=== PATIENT | male | born 1960 | race Two or more races ===

== ENCOUNTER 2021-11-24 14:00 | Outpatient (AMB) | payer MEDICAID, SELFPAY ==
--- NOTE | 2021-12-23 13:57 | CWC.SOCIALAS ---
[facility] Social Work Assessment Intake Visit Date: 11/24/21 Conference Time: 02:00 (pm) Conference Visit Location: [facility] via phone call Visit Participants: Blas Portillo-patient, Joan Torrez-, Abhinav Portillo-Son, Harriett Lira-Daughter in-law, Mireya Toledo-JBOSS ARCHITECT, Dr. Dimas Rodrigues. Referral Source: Inital Visit Sales And Service Technician: Yes (For communication with Dr. Rodrigues) Name of Sales And Service Technician: Mireya Toledo LCSW List Name, Facility and location of PCP: Brisa Portillo, [facility] Preliminary Information History provided by: Patient and Family Diagnosis: Bone Cancer and History of Prostate Cancer Prognosis: Fair Goal of Care: Life Prolonging (Patient would like to feel better. Patient's son, Abhinav, reported his goal for patient would be for him to live longer so patient can see his grandchildren grow. ) Social Environment [facility] Employment status: Disabled (Patient applied for state disability ROMIE. 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 ) Support system: Good (Patient reported he has support from his who he has been to for 42 years, his 5 children (3 daughters and 2 sons) and his daughter in-law, and grandchildren. ) ADL's Getting dressed: Yes Personal Hygiene: Yes Feeding: Yes Ambulate: Yes Continence management: Yes Prepare meals: No ( cooks) Transportation: No (Son takes him to appointments) paste mixer: No ( completes residential roofer helper) Manage medications: No ( assist with medications) Manage finances: No ( manages finances) Patient has the following @ home: None (Patient does not use Home O2. Patient does not use, need, or have DME. ) Ambulation ability: Ambulates independently (Patient reported no falls. Patient reported no fear of falling. ) Mandaeism/Spirituality: Patient identified as Christianity and reported he does pray to bring him comfort. Cognitive/Emotional Status Mental status: Alert and Oriented Judgement: Good Emotional status: Normal Coping status: Coping w/some difficulty Learning needs: Language (Patient is Australian speaking and requires a answering service telephone operator. ) Depression screening score: 14 (Moderate Depression. Will continue to assess. Will further discuss with patient referral for counseling services if interested and symtpoms persist. ) Anxiety screening score: 9 (Mild Anxiety. Will continue to assess. Will further discuss with patient referral for counseling services if interested and symptoms persist. ) Additional comments: Patient?s mood and affect was within normal limits and thought process was congruent with thought content. Patient able to communicate effectively. Discussed limits of confidentiality. No signs of delusion or hallucinations during the call. Patient denied having hallucination or delusions. Patient denied past history of mental health diagnosis and services. Patient declined SI and HI past and current. Patient declined having a developmental or learning disorder. Patient only able to read and write in Australian. Patient declined substance abuse. Patient does not smoke. Processed thoughts and feelings with patient regarding his current condition. Patient was reserved sharing his feelings. Assessed patient?s ability to cope. Patient reported he does go outside and goes for walks when the weather allows it. He asked if too much sun was bad for him. Dr. Rodrigues recommended obtaining sunlight for Vitamin D. He reported he listens to music and spends time with his family. Patient reported he also engages in prayer. Educated patient on Gratitude exercises and discussed the benefits. Patient was also educated on Deep Breathing and discussed benefits. Will continue to assess patient?s emotional status. Advanced Care planning Advacned care plan discussed: Yes Social Service Decision Making Status: Makes Own Decisions (Provided education on ADVDIR and POLST. Documents mailed. No changes to code status. Patient remains Full Code. ) Primary Decision Maker: Abhinav Portillo, Son Anticipated needs Water Hauler Patient Concerns: Adjustment to Illness (Patient experiencing depression and anxiety. Educated on warm line and mailed brochure. Mailed Deep Breathing exercises handout. Mailed Gratitude Journal handout.) and Financial Issues (Patient was pending ROMIE benefits. Mailed [employer] energy assistance flyer and weatherization program flyer and food bank information. ) Additional Note Additional Visit Nurse notes: Weight: 210 LBS one week from 11/24/21 at PCP Height: 5'7 Patient diagnosed with Prostate Cancer in [place] originally. Patient diagnosed with Bone Cancer in August 2020. Radiation ended on 11/23/21. Pain: at a 2 out of 10. He reported it is controlled. Sleep: Not well. Goes to sleep around 8pm or 9pm. He tried sleeping pills but they do not help. He reported sleeping a total of 4 hours. Discussed sleep hygiene tips with patient to help improve sleep: No use of electronics or TV before bed, keep room at a comfortable temperature, engage in relaxation activities-Deep Breathing, prayer, listening to relaxing music. Engaged patient in practicing Deep Breathing exercises. Appetite: He reports he eats a little. He reported he does not crave foods and sometimes does not feel like eating. He reported he does force himself to eat. He agreed to contact with the Dietitian. Constipation: Sometimes, but not now he is normal at this time. He reported no diarrhea, wounds, swelling. Nausea: He reported he does have nausea daily. He has medication for nausea. No vomiting. Energy: Patient reported he does get tired and has low energy. Discussed fatigue management. Take breaks, prioritizing task, breaking task down.
== END 2021-11-24 15:20 | disposition home or self-care (01) ==
LOC: HODCWC 16:04
PROVIDERS: PCP Radiology Therapeutic Radiology; Referring Provider Radiology Therapeutic Radiology; Visit Provider Radiology Therapeutic Radiology

== ENCOUNTER 2024-09-11 16:51 | Emergency (ER) | payer MEDICARE, MEDICAID, SELFPAY ==
[2024-09-11 16:53] VITALS: BP 131/88; PULSE 88; RESP 18; TEMP 37.3; O2SAT 97
--- NOTE | 2024-09-11 17:03 | PD.EDADULT ---
ED General RME/HPI General Chief complaint: Nausea/Vomiting/Diarrhea Stated complaint: WEAKNESS Time Seen by Provider: 09/11/24 16:58 Arrival date/time: 09/11/24 16:51 CC: Nausea vomiting with generalized weakness HPI patient states his progressive increase in weakness over the past several days. Patient has a history of diarrhea metastatic bone cancer and is being seen by Dr. Wyatt and Dr. Rodrigues at the cancer treatment center. Patient denies fever. EMS reports stable vital signs and route. Related Data Home Medications ?Medication ?Instructions ?Recorded ?Confirmed capecitabine 500 mg tablet 1,000 mg PO BID 08/24/24 09/11/24 oxycodone-acetaminophen 10 mg-325 1 - 2 tab PO Q6HR 08/24/24 09/11/24 mg tablet docusate sodium 250 mg capsule 250 mg PO QDAY 09/11/24 09/11/24 oxycodone 15 mg tablet,crush 15 mg PO BID 09/11/24 09/11/24 resistant,extended release 12 hr (OxyContin) Allergies Allergy/AdvReac Type Severity Reaction Status Date / Time No Known Allergies Allergy Verified 06/19/24 13:43 Review of Systems Review of Systems Narrative Review of Systems: GEN: No fever, no chills, no weight loss EYES: No discharge, no visual changes, no pain HEENT: No ear pain, no congestion, no sore throat PULM: No shortness of breath, no cough, no congestion CV: No chest pain, no dyspnea on exertion, no palpitations GI: + nausea, + vomiting, no diarrhea, no pain, no constipation : No frequency, no urgency, no dysuria MUSC/SKEL: No joint pain, no back pain SKIN: No rash PSYCH: No hallucinations, no depression HEME/LYMPH: No easy bleeding or bruising tendencies NEURO: + weakness, no headache ED Exam Narrative Physical exam: [General: Appears not in any acute distress Head normocephalic HEENT: Within acceptable limits Neck is supple nontender Chest equal chest rise nontender to palpation Respiratory: Clear to auscultation no wheezes crackles or rubs CV: Rate rhythm is regular no murmurs rubs or clicks Abdomen is soft nontender no masses positive bowel sounds all 4 quadrants GI: Rectum: Poor rectal tone small amount of stool in the vault, guaiac negative. No fissures, no hemorrhoids. Back: No CVA tenderness no spinous process tenderness from cervical spine thoracic and lumbar spine Skin: Pale, intact no petechiae rash induration ulceration or crepitus Extremities: Moving all extremity against resistance cap refill less than 2 seconds neurosensory intact Neuro: Awake alert oriented x2, person and place, Glascow coma 15 no focal deficits] Course Quality Measures none Orders Category Date Time Status Saline [Insert IV] NOW Care 09/11/24 16:59 Completed B-Type Natriuretic Peptide Stat Lab 09/11/24 17:51 Completed CBC Stat Lab 09/11/24 17:51 Completed Comprehensive Metabolic Panel Stat Lab 09/11/24 17:51 Completed Drug Screen,Urine Stat Lab 09/11/24 17:25 Completed LDH (Lactate Dehydrogenase) Stat Lab 09/11/24 17:51 Completed Lipase Stat Lab 09/11/24 17:51 Completed Magnesium Stat Lab 09/11/24 17:51 Completed Partial Thromboplastin Time Stat Lab 09/11/24 17:51 Completed Prothrombin Time with INR Stat Lab 09/11/24 17:51 Completed Type and Screen Stat Lab 09/11/24 17:51 Completed Urinalysis Stat Lab 09/11/24 17:25 Completed VBG [Venous Blood Gas] Stat Lab 09/11/24 17:51 Completed Vital Signs Vital signs: Vital Signs Temperature 99.2 F 09/11/24 16:53 Pulse Rate 88 09/11/24 16:53 Respiratory Rate 18 09/11/24 16:53 Blood Pressure 131/88 H 09/11/24 16:53 Pulse Oximetry (%) 97 09/11/24 16:53 Oxygen Delivery Method Room Air 09/11/24 16:53 [facility] Patient data External records reviewed:: [facility] previous records and EMS form Clinical information provided by:: patient and EMS Social determinants that could affect healthcare access:: none Patient has the following chronic illnesses:: Cancer of the spine origin unknown How is presenting disease/condition affected by chronic disease/condition?: uneffected by Evaluation data The following diagnostics were reviewed and interpreted by me:: lab results and radiology exam(s) Lab and/or radiology exams considered but not ordered:: CBC shows a worsening anemia but guaiac is negative no leukocytosis platelets are 155 PT at 14.4 INR 1.4 PTT 29.0 VBG shows a 7.41 pH, pCO2 38 pO2 of 36 CMP shows sodium 131 potassium of 4.0 chloride 98 CO2 of 22.1 BUN of 17 creatinine 0.9 glucose of 117. Gap of 10 Mag of 1.9 there is mild transaminitis with AST of 78 ALT 15 alk phos of 824 LDH is at 563. Urine is negative UDS is also negative. Interpretation Summary: There is a disconnect in the patient stating that he is taking his are narcotic-based medications for pain however his UDS is completely negative. I am not sure who is administering the medications however both family member and the patient at bedside state that his is giving him the pain medications. This may be needs to be explored later if pain becomes a major issue for this patient currently the patient's primary complaint was generalized weakness. The patient is anemic, but not enough to be transfused guaiac is negative. Patient has an appointment in [address] Rodrigues for radiology they may want to recheck his hemoglobin to determine if there is a continued decline in the level. Medications Medications considered but not ordered:: None Medication administrations:: None Consultations Consultation(s) initiated? (list below): No Diagnosis Differential Diagnosis ED Complaint MDM: Anemia sepsis electrolyte imbalance Most likely diagnosis given after review of the tests above:: Anemia weakness Admission Indicated Admission indicated?: not indicated Explain why admission is indicated or not indicated:: Stable for outpatient follow-up Admission Request Was there a request for admission?: No Disposition Plan Disposition Plan: Discharge Discharge Attestation Discharge Attestation: The patient and all family members were given an opportunity to ask questions and understood the discharge instructions. Discharge instructions specifically effects, indications for sooner follow up or return to the emergency department, and the expected course of current diagnosis. Patient condition: Stable Medical Decision Making Differential Diagnosis Differential Diagnosis: Anemia sepsis electrolyte imbalance Lab Data 09/11/24 17:51 09/11/24 17:51 Labs: Lab Results 09/11/24 09/11/24 Range/Units 17:25 17:51 WBC 6.2 (3.8-10.6) Thou/mm3 RBC 2.67 L (4.50-5.90) Miln/mm3 Hgb 7.4 L (13.5-16.0) g/dL Hct 23.7 L (41.0-53.0) % MCV 89 (80-100) fL MCH 27.7 (25.0-35.0) pg MCHC 31.2 (31.0-37.0) g/dl RDW Std Deviation 63.4 H (35.1-43.9) fL Plt Count 155 D (140-440) Thou/mm3 Neut % (Auto) 63 (37-80) % Lymph % (Auto) 19 (10-50) % [place] % (Auto) 9 (0-12) % Eos % (Auto) 1 (0-10) % Baso % (Auto) 0 (0-2.5) % Neut # (Auto) 3.9 (1.8-7.7) Thou/mm3 Lymph # (Auto) 1.2 (1.0-4.8) Thou/mm3 [place] # (Auto) 0.5 (0.0-0.8) Thou/mm3 Eos # (Auto) 0.0 (0.0-0.5) Thou/mm3 Baso # (Auto) 0.0 (0.0-0.2) Thou/mm3 Immature Gran # (Auto) 0.53 H (0.00-0.00) Thou/mm3 Absolute Nucleated RBC 0.17 H (0.00-0.00) Thou/mm3 Immature Gran % 9 H (0-0) % Nucleated RBC % 3 H (0) /100 WBC PT 14.6 H (9.0-12.2) Seconds INR 1.4 H (0.9-1.3) APTT 29.0 (22.0-36.0) Seconds VBG pH 7.41 (7.33-7.66) VBG pCO2 38 (36-56) mmHg VBG pO2 36 (15-58) mmHg VBG O2 Sat (Lynne) 66 L (96-97) % VBG Base Excess 0 (-3-3) Sodium 130 L (136-145) mMol/L Potassium 4.0 (3.4-5.1) mMol/L Chloride 98 (98-107) mMol/L Carbon Dioxide 22.1 (20.0-31.0) mMol/L Anion Gap 10 (7-16) BUN 17 (9-23) mg/dL Creatinine 0.9 (0.6-1.3) mg/dL Estim Creat Clear Calc 88.6 (>60) mL/min eGFR > 60 (60 - ) See Note BUN/Creatinine Ratio 19 (12-20) Ratio Glucose 117 H (74-106) mg/dL Calculated Osmolality 263 L (275-295) Calcium 8.8 (8.3-10.6) mg/dL Corrected Calcium 9.0 (8.5-10.1) mg/dL Magnesium 1.9 (1.6-2.6) mg/dL Total Bilirubin 0.4 (0.3-1.2) mg/dL AST 78 H (0-34) U/L ALT 15 (10-49) U/L Alkaline Phosphatase 824 H (46-116) U/L Lactate Dehydrogenase 563 H (120-246) U/L B-Natriuretic Peptide < 20 (0-100) pg/mL Total Protein 7.9 (5.7-8.2) gm/dL Albumin 3.7 (3.4-4.8) gm/dL Globulin 4.2 H (2.3-3.5) gm/dL Albumin/Globulin Ratio 0.9 L (1.2-2.2) Lipase 25 (12-53) U/L Ur Collection Type Clean Catch Urine Color Colorless A (Lt Yel-Yel) Urine Clarity Clear (Clear/Hazy) Urine pH 6.0 (5.0-7.0) Ur Specific [place] 1.007 (1.001-1.035) Urine Protein Negative (Neg - Trace) Urine Glucose (UA) Negative (Negative) Urine Ketones Negative (Negative) Urine Blood Negative (Negative) Urine Nitrite Negative (Negative) Urine Bilirubin Negative (Negative) Urine Urobilinogen (Auto) Negative (0.0-1.0) mg/dL Ur Leukocyte Esterase Negative (Negative) Urine RBC 1 (0-3) /hpf Urine WBC < 1 (0-5) /hpf Ur Squamous Epith Cells 0 (0-5) /hpf Urine Bacteria None (None) Urine Opiates Screen Negative (Negative) Urine Fentanyl Screen Negative (Negative) Ur Barbiturates Screen Negative (Negative) U Amphetamin/Meth Scrn Negative (Negative) U Benzodiazepines Scrn Negative (Negative) U Cocaine Metab Screen Negative (Negative) U Marijuana (THC) Screen Negative (Negative) Blood Type A Positive Antibody Screen NEGATIVE Blood Bank Wristband ID Yes Discharge Plan Plan Patient Disposition: HOME (Self Care) Patient condition on transfer: Stable Prescriptions/Referrals Prescriptions/Med Rec: No Action capecitabine 500 mg Tablet 1,000 mg PO BID Rx Instructions: 2 TABS, 2X A DAY FOR 14 DAYS THEN OFF FOR 7 DAYS oxycodone-acetaminophen 10-325 mg tablet 1 - 2 tab PO Q6HR Patient Comments: take 1 TO 2 tablets by mouth every 6 hours if needed docusate sodium 250 mg Capsule 250 mg PO QDAY oxycodone [OxyContin] 15 mg Tablet,Oral Only,Ext.Rel.12 Hr 15 mg PO BID Referrals: Dimas Rodrigues MD [Physician] - In 1 week Problem List Clinical Impression: Weakness, Anemia Patient/Caregiver Discharge Instructions Education Materials: Anemia, ED Weakness (Uncertain Cause) Additional Instructions: Follow-up with Dr. Rodrigues as stated. If there is worsening of symptoms return the emergency room immediately for further evaluation. Print Language: Azerbaijani Stand Alone Forms: Julissa Award Info., Work/School Release, Patient Portal Info Letter Attestation Attestation The patient was seen by the midlevel practitioner. I, the co-signing physician, was present during the entire ER visit. While I did not physically examine the patient, I was available for consultation as needed.
[2024-09-11 17:28] LABS: Collection Type, Urine Clean Catch; Squamous Epithelial Cell,Urine 0 /hpf (0-5)
[2024-09-11 17:32] LABS: Bilirubin,Urine Negative (Negative); Blood,Urine Negative (Negative); Clarity,Urine Clear (Clear/Hazy); Color,Urine Colorless (Lt Yel-Yel); Glucose, Urine Negative (Negative); Ketones,Urine Negative (Negative); Leukocyte Esterase,Urine Negative (Negative); Nitrite,Urine Negative (Negative); Protein,Urine Negative (Neg - Trace); RBC,Urine 1 /hpf (0-3); Specific Gravity,Urine 1.007 (1.001-1.035); Urobilinogen,Urine Negative mg/dL (0.0-1.0); WBC,Urine < 1 /hpf (0-5)
[2024-09-11 17:39] LABS: Amphetamine/Methamp Scrn,U Negative (Negative); Barbiturate Screen,Urine Negative (Negative); Benzodiazepines Screen,Urine Negative (Negative); Benzoylecgonine Screen, Ur Negative (Negative); Fentanyl Screen,Urine Negative (Negative); Opiate Screen,Urine Negative (Negative); THC Screen,Urine Negative (Negative)
--- NOTE | 2024-09-11 18:05 | PC.NURSE ---
BIBA for n/v with general weakness x2 days; pt has hx of spinal cancer and is currently on chemotherapy. Per Shan Atomic Physics Teacher, pt also started exhibiting bloody nose, which started today. NKA. Pt GCS of 15 upon arrival, A&Ox4, & answering all of RN's questions appropriately.
[2024-09-11 18:07] VITALS: BP 113/55; PULSE 89; PULSE 99; RESP 15; RESP 18; TEMP 37; O2SAT 99; BMI 28.8
[2024-09-11 18:14] LABS: Base Excess, Venous 0 (-3-3); O2 Saturation, Venous 66 % (96-97); PCO2, Venous 38 mmHg (36-56); PO2, Venous 36 mmHg (15-58); pH, Venous 7.41 (7.33-7.66)
[2024-09-11 18:16] LABS: Basophils % (Auto) 0 % (0-2.5); Eosinophils % (Auto) 1 % (0-10); Hematocrit 23.7 % (41.0-53.0); Immature Granulocytes % (Auto) 9 % (0-0); Immature Granulocytes Auto 0.53 Thou/mm3 (0.00-0.00); Lymphocytes # (Auto) 1.2 Thou/mm3 (1.0-4.8); Lymphocytes % (Auto) 19 % (10-50); Mean Corpuscular HGB Conc 31.2 g/dl (31.0-37.0); Mean Corpuscular Hemoglobin 27.7 pg (25.0-35.0); Mean Corpuscular Volume 89 fL (80-100); Monocytes # (Auto) 0.5 Thou/mm3 (0.0-0.8); Monocytes % (Auto) 9 % (0-12); Neutrophils # (Auto) 3.9 Thou/mm3 (1.8-7.7); Neutrophils % (Auto) 63 % (37-80); Nucleated Red Blood Cell # 0.17 Thou/mm3 (0.00-0.00); Nucleated Red Blood Cell % 3 /100 WBC (0); Platelet Count 155 Thou/mm3 (140-440); RDW Standard Deviation 63.4 fL (35.1-43.9); Red Blood Count 2.67 Miln/mm3 (4.50-5.90); White Blood Count 6.2 Thou/mm3 (3.8-10.6)
[2024-09-11 18:24] LABS: Hemoglobin 7.4 g/dL (13.5-16.0)
[2024-09-11 18:43] LABS: Alanine Aminotransferase 15 U/L (10-49); Albumin, Serum 3.7 gm/dL (3.4-4.8); Albumin/Globulin Ratio 0.9 (1.2-2.2); Alkaline Phosphatase 824 U/L (46-116); Anion Gap 10 (7-16); Aspartate Amino Transferase 78 U/L (0-34); BUN/Creatinine Ratio 19 Ratio (12-20); Bilirubin,Total 0.4 mg/dL (0.3-1.2); Blood Urea Nitrogen 17 mg/dL (9-23); Calcium 8.8 mg/dL (8.3-10.6); Carbon Dioxide 22.1 mMol/L (20.0-31.0); Chloride 98 mMol/L (98-107); Creatinine (Component) 0.9 mg/dL (0.6-1.3); Estimated Creatinine Clearance 88.6 mL/min (>60); Globulin 4.2 gm/dL (2.3-3.5); Glucose 117 mg/dL (74-106); LDH (Lactate Dehydrogenase) 563 U/L (120-246); Lipase 25 U/L (12-53); Magnesium 1.9 mg/dL (1.6-2.6); Osmolality,Calculated 263 (275-295); Sodium 130 mMol/L (136-145); Total Protein 7.9 gm/dL (5.7-8.2); eGFR > 60 See Note
[2024-09-11 18:49] LABS: INR 1.4 (0.9-1.3); Prothrombin Time 14.6 Seconds (9.0-12.2)
[2024-09-11 18:51] LABS: B-Type Natriuretic Peptide < 20 pg/mL (0-100)
[2024-09-11 20:00] VITALS: BP 120/75; PULSE 85; RESP 16; TEMP 37.1; O2SAT 97
== END 2024-09-11 20:39 | disposition home or self-care (01) ==
LOC: SERX 20:34
PROVIDERS: Registered Nurse General Practice; Emergency Provider Emergency Medicine
DX: D64.9 Anemia, unspecified (principal)
CPT/HCPCS: 36415; 80053; 80307; 81001; 82803; 83615; 83690; 83735; 83880; 85025; 85610; 85730; 86850; 86900; 86901; 99283

== ENCOUNTER 2024-09-17 14:54 | Outpatient (RCR) | payer MEDICARE, MEDICAID, SELFPAY | END 2024-09-29 23:59 | disposition home or self-care (01) | LOC: SCTC 14:54 | PROVIDERS: PCP Family Medicine; Referring Provider Family Medicine; Visit Provider Radiology Therapeutic Radiology | DX: Z51.0 Encounter for antineoplastic radiation therapy (principal); C79.51 Secondary malignant neoplasm of bone; C80.1 Malignant (primary) neoplasm, unspecified | CPT/HCPCS: 36430; 77014; 77290; 77300; 77301; 77334; 77338; 77385; 86850; 86900; 86901; 86923; A4216; J1642; P9016 ==

== ENCOUNTER 2024-09-18 07:21 | Emergency (ER) | payer MEDICARE, MEDICAID, SELFPAY ==
[2024-09-18] VITALS (29 sets, daily range): BP systolic 101–147; BP diastolic 66–92; PULSE 88–128; RESP 12–30; TEMP 37.7–39.1; O2SAT 85–99; BMI 29.9
--- NOTE | 2024-09-18 07:36 | XR_ITS ---
Examination: AP chest single view Technique one AP portable semiupright chest single view Exam date and time: September 18, 2024 0744 hours Comparison August 24, 2024 INDICATIONS: Fever sepsis today. FINDINGS: Diffuse mild bilateral lung opacity Right internal jugular Port-A-Cath tip satisfactory position Normal heart size IMPRESSION: Diffuse mild bilateral pneumonia
--- NOTE | 2024-09-18 07:36 | EKG_ITS ---
[facility] Test Date: 2024-09-18 Pat Name: RENETTA PARSON Department: Room: - Gender: Male Media Law Faculty Member: : 1960 Requested By: Deven Rosales Order Number: [id number] Reading MD: Deven Rosales Measurements Intervals [place] Rate: 119 P: 53 [place]: 154 QRS: 94 QRSD: 99 T: 41 QT: 324 QTc: 456 Interpretive Statements SINUS TACHYCARDIA BORDERLINE RIGHT AXIS DEVIATION [QRS AXIS > 90] ABNORMAL RHYTHM ECG Compared to ECG 06/19/2024 14:16:40 Sinus rhythm no longer present T-wave abnormality no longer present /store/[id number]
--- NOTE | 2024-09-18 07:44 | PD.EDAMS ---
Altered Mental Status RME/HPI General Chief Complaint: Altered Mental Status Stated Complaint: AMS Time Seen by Provider: 09/18/24 07:32 Arrival date/time: 09/18/24 07:21 RME / HPI RME / HPI narrative: 64 year old male with history of metastatic carcinoma TL spine, recently diagnosed with left orbit tumor followed by Dr. Rodrigues at [facility] presents to the ED BIBA from home for altered mental status, increased lethargy today. Per medics, on scene pupils were pin point and family reported he is currently on multiple pain medications. Was given 4mg IN Narcan. Prehhospital BS 125. On arrival to ED patient unable to provide any additional history. Per EMR review, patient was prescribed OxyContin 15mg BID and Percocet 10 q6h as needed. Related Data Home Medications ?Medication ?Instructions ?Recorded ?Confirmed capecitabine 500 mg tablet 1,000 mg PO BID 08/24/24 09/11/24 oxycodone-acetaminophen 10 mg-325 1 - 2 tab PO Q6HR 08/24/24 09/11/24 mg tablet docusate sodium 250 mg capsule 250 mg PO QDAY 09/11/24 09/11/24 oxycodone 15 mg tablet,crush 15 mg PO BID 09/11/24 09/11/24 resistant,extended release 12 hr (OxyContin) Allergies Allergy/AdvReac Type Severity Reaction Status Date / Time No Known Allergies Allergy Verified 06/19/24 13:43 Review of Systems Review of Systems ROS Unobtainable: unobtainable due to mental status Past Medical History Past Medical History CARDIAC: Positive Cardiac Disorders and Hypercholesterolemia GASTROINTESTINAL: Positive Colorectal Cancer and Gastroesophageal Reflux Disease GENITOURINARY: Positive Genitourinary Disorders, Prostate Cancer and Benign Prostatic Hyperplasia MUSCULOSKELETAL: Positive Musculoskeletal Disorders and Arthritis ENDOCRINE: Positive Endocrine Disorders, Diabetes Mellitus Type 2 and Hypothyroidism OTHER HISTORY: Positive Falls, Cancer (Spinal Cancer), Colorectal Cancer and Prostate Cancer Family History FAMILY HISTORY: Positive Family Respiratory Disorders; Negative Family Cardiac Disorders Social History SMOKING STATUS: Never smoker SUBSTANCE USE: does not use ED Exam Narrative Physical exam: GENERAL APPEARANCE: Awake, uncooperative, agitated, irritable, does not respond to questions, tossing and turning on hospital gurney. HEENT: NC, AT. MMM. EOMI, clear conjunctiva, oropharynx clear. NECK: Supple without lymphadenopathy. No stiffness or restricted ROM. HEART: Normal rate and regular rhythm, normal S1/S1, no m/r/g LUNGS: CTAB, moving air well. No crackles or wheezes are heard ABDOMEN: Soft, nontender, nondistended with good bowel sounds heard. BACK: No midline C/T/L spine pain or deformity, No CVAT, no obvious deformity. EXTREMITIES: Without cyanosis, clubbing or edema. MUSCULOSKELETAL: FROM of all major joints, no chest tenderness NEUROLOGICAL: Grossly nonfocal. Awake, uncooperative, not responding to questions, moving all 4 extremities. Agitated, irritable. CN not formally tested but appear grossly intact. Skin: Warm and dry without any rash. Course Quality Measures Current suspected stage: sepsis Possible source: pulmonary Blood cultures ordered: completed in ED Antibiotic ordered: Yes Pertinent labs: 09/18/24 09/18/24 07:48 11:21 Lactic Acid 3.3 H mMol/L 2.5 H mMol/L (0.4-2.0) (0.4-2.0) Procalcitonin 0.48 ng/ml (0.0-0.49) sepsis Orders Category Date Time Status Bedside Blood Glucose NOW Care 09/18/24 07:36 Active Bedside COVID-19 Antigen Test NOW Care 09/18/24 07:36 Active Bedside Influenza A&B Antigen Test NOW Care 09/18/24 07:36 Completed EKG (ED ONLY) *Do not use* NOW Care 09/18/24 07:36 Completed Lumbar Puncture set up NOW Care 09/18/24 14:27 Active Referral - Physical Therapy Asst Stat Cons 09/18/24 11:18 Active Referral - Physical Therapy Asst Stat Cons 09/18/24 15:[address] head/brain wo con Stat Exams 09/18/24 09:[address] head/brain wo con Stat Exams 09/18/24 14:37 Completed EKG (ED Only) Stat Exams 09/18/24 07:36 Draft XR chest 1V Stat Exams 09/18/24 07:36 Completed Blood Culture (Lab) Stat Lab 09/18/24 07:54 Received CBC Stat Lab 09/18/24 07:48 Completed CMP [Comprehensive Metabolic Panel] Stat Lab 09/18/24 07:48 Completed LDH (Lactate Dehydrogenase) Stat Lab 09/18/24 11:21 Completed Lactate (Lactic Acid) Stat Lab 09/18/24 07:48 Completed Lactic Acid, 3 HR Stat Lab 09/18/24 11:21 Completed Path Review Blood Smear Stat Lab 09/18/24 07:48 Completed Procalcitonin Stat Lab 09/18/24 07:48 Completed RSV [Respiratory Syncytial Virus Ag] Stat Lab 09/18/24 07:36 Ordered Troponin I Stat Lab 09/18/24 07:48 Completed Urinalysis Stat Lab 09/18/24 10:00 Completed Acetaminophen Supp [Tylenol Supp] Med 09/18/24 07:36 Discontinued 650 mg HI X1 ONE Ibuprofen Tab [Motrin Tab] Med 09/18/24 14:20 Discontinued 600 mg PO X1 ONE LORazepam [Ativan Inj] Med 09/18/24 09:07 Discontinued 1 mg IVP X1 ONE LORazepam [Ativan Inj] Med 09/18/24 14:26 Discontinued 2 mg IVP X1 ONE Morphine Inj Med 09/18/24 07:35 Discontinued 4 mg IVP X1 ONE Morphine Inj Med 09/18/24 09:07 Discontinued 4 mg IVP X1 ONE Piper/Tazo 3.375 gm [Zosyn] Med 09/18/24 09:07 Discontinued 3.375 gm in 50 ml IV X1 Piper/Tazo 3.375 gm [Zosyn] Med 09/18/24 17:39 Active 3.375 gm in 50 ml IV X1 Sodium Chloride 0.9% 1000 ml [Ns] 1,000 ml Med 09/18/24 07:35 Discontinued IV 999 mls/hr Sodium Chloride 0.9% 1000 ml [Ns] 1,000 ml Med 09/18/24 09:07 Discontinued IV 999 mls/hr Vancomycin Inj 1,000 mg Med 09/18/24 18:00 Active Sodium Chloride 0.9% 250 ml [Ns] 250 ml IV X1 Reevaluation(s) Reevaluation #1: I spoke with transfer nurse Tabatha regarding transfer for neurosurgery. I also spoke with patients granddaughter. States the patient is currently on home oral chemotherapy which he takes for a couple of weeks and off for a couple of weeks. States she thinks patient is currently on the tail end of chemotherapy. Yesterday afternoon was the patients first radiation treatment for left eye tumor. Noticed shortly after radiation he has been agitated, fidgeting, and walking around all day. States patient was up all night, confused and agitated. They wondered if he was having pain and was given his home pain medications. Noticed after taking the pain medications patient was confused and more lethargic, prompting ED visit. Time: 11:18 Vital Signs Vital signs: Vital Signs Temperature 101.4 F H 09/18/24 07:28 Pulse Rate 121 H 09/18/24 07:28 Respiratory Rate 17 09/18/24 07:28 Blood Pressure 126/83 09/18/24 07:28 Pulse Oximetry (%) 99 09/18/24 07:28 Oxygen Delivery Method Room Air 09/18/24 07:28 Pulse ox is 99% on room air which is adequate. Altered Mental Status MDM Narrative MDM Narrative:: Mr. Portillo is a very sick gentleman who presents with fever and altered mental status. This is in the setting of known metastatic cancer of an unknown primary with several bone metastases on high-dose narcotics at home he is on home chemotherapy and started targeted radiation to metastases to his left orbit yesterday evening. Family members note quite a distinct difference between before radiation afterwards where he rapidly became altered confused with behavior more consistent with agitation. They did try all home efforts including additional pain control with his home narcotics without improvement therefore comes to the emergency department. Patient is agitated, not following commands here, GCS of 11 and maintaining throughout the workup. He has a temperature of 103 and is tachycardic to 120s to 140s therefore sepsis alert was initiated. As he is on chemotherapy, parson cultures were sent and he was started on broad-spectrum antibiotics of vancomycin and Zosyn. Workup was significant for a normal white blood cell count improving hemoglobin from previous testing 1 week ago, any new thrombocytopenia at 88 compared to 15 a week ago. Long-term trending shows gradually decreasing where at the first half of the year up until July he was in fact thrombocytopenic to the range of 400-600. LDH has increased from last week at 800 to now 1500 today. In addition to sepsis, this raises concerns for TTP. Head CT was done which shows a very fine, thin hyperlucency on the left cerebral region, which appears to be along the trajectory of the radiation. This could be blood, metastatic extension versus radiation effects is also considered. Case was discussed with neurosurgery for the possibility of subdural however given the small size does not feel that it would be explanatory of his altered mental status and sepsis that would be most likely, and transfer for neurosurgery would not necessarily be indicated as there would be no intervention. Neurosurgery does recommend further intensive workup for his altered mental status and fevers separate from the subdural. Teleneurology was consulted and after examination, recent history of radiation and hematologic derangements, feel that he would be better served at a higher level of care, with a tertiary care multidisciplinary team which I agree. For the possibility of TTP and treatment with plasmapheresis and high-dose steroids, I consulted our community health outreach worker, Dr. Shahid, and would not be able to offer plasmapheresis without heme-onc backup therefore recommend higher level of care. I, Basia Guan, am scribing for and in the presence of Dr. Rosales. Patient data External records reviewed:: [facility] previous records (I reviewed CTC notes from 09/03/2024 and ED visit on 09/11/2024) and EMS form Clinical information provided by:: EMS (Provided prehospital course ) Social determinants that could affect healthcare access:: none Patient has the following chronic illnesses:: metastatic carcinoma TL spine, recently diagnosed with left orbit tumor followed by Dr. Rodrigues at [facility] How is presenting disease/condition affected by chronic disease/condition?: exacerbated by Evaluation data The following diagnostics were reviewed and interpreted by me:: lab results, radiology exam(s) and EKG tracing(s) (Sinus tachycardia, rate 119, normal axis, normal interval, no acute ST or T-wave changes, no STEMI. ) Lab and/or radiology exams considered but not ordered:: None Interpretation Summary: Ordering Physician: Deven Rosales MD Date of Service: 09/18/24 Procedure(s): XR chest 1V Accession Number(s): [id number] cc: Brisa Portillo MD; Deven Rosales MD; Arnold Golden MD~ Examination: AP chest single view Technique one AP portable semiupright chest single view Exam date and time: September 18, 2024 0744 hours Comparison August 24, 2024 INDICATIONS: Fever sepsis today. FINDINGS: Diffuse mild bilateral lung opacity Right internal jugular Port-A-Cath tip satisfactory position Normal heart size IMPRESSION: Diffuse mild bilateral pneumonia Dictated By: Arnold Golden MD Signed By: <Electronically signed by Arnold Golden MD in OV> 09/18/24 0924 Ordering Physician: Deven Rosales MD Date of Service: 09/18/24 Procedure(s): CT head/brain wo [facility] Accession Number(s): [id number] cc: Brisa Portillo MD; Deven Rosales MD; Arnold Golden MD~ Examination: CT brain head without contrast. 2-D sagittal coronal reconstructions Date and time of exam:September 18, 2024 at 1019 hours INDICATIONS: Onset confusion lethargy altered mental status today, history August 24, 2024 left upper eyelid droop localized facial swelling, diagnosis malignant neoplasm prostate with known osseous metastatic disease CTDI: vol (mGy):50.6 DLP: (mGycm):1085 Technique: Multiple CT axial sections of the brain have been obtained, 5 mm slice thickness. Contrast has not been administered. 2-D sagittal, coronal reconstructions have been obtained Low dose protocols were performed. One or more of the following dose reduction techniques were used; automated exposure control, adjustment of the mA and/or KV according to patient size, use of iterative reconstruction technique. Findings: No significant ventricular enlargement. Subtle hyperdensity 2 mm in thickness peripheral to the left cerebral hemisphere, for instance axial image 22. No mass effect or midline shift Basal cisterns are not remarkable. Fourth ventricle is midline. Cranial vault intact. Impression: Subtle hyperdensity, 2 mm in thickness, peripheral to the left cerebral hemisphere consistent with small extra-axial subdural hematoma, advise close clinical observation and short-term follow-up CT brain scan Dictated By: Arnold Golden MD Signed By: <Electronically signed by Arnold Golden MD in OV> 09/18/24 1104 Medications / Prescriptions Medications or Prescriptions considered but not ordered:: None Medication administrations:: Medication Administration History Piperacillin/Tazobactam/Dextrose (Zosyn) 3.375 gm in 50 mls @ 100 mls/hr IV X1 ONE Stop: 09/18/24 18:08 Vancomycin HCl 1,000 mg/ (Sodium Chloride) 250 mls @ 150 mls/hr IV X1 ONE Stop: 09/18/24 19:39 Discontinued Medications Acetaminophen (Acetaminophen Supp 650 Mg Supp) 650 mg HI X1 ONE Stop: 09/18/24 07:37 Last Admin: 09/18/24 08:28 Dose: 650 mg Documented By: CHRIS Sodium Chloride (Ns) 1,000 mls @ 999 mls/hr IV .Q1H1M ONE Stop: 09/18/24 08:35 Last Infusion: 09/18/24 10:49 Dose: Infused Documented By: Admin: 09/18/24 08:28 Dose: 999 mls/hr Documented By: CHRIS Sodium Chloride (Ns) 1,000 mls @ 999 mls/hr IV .Q1H1M ONE Stop: 09/18/24 10:07 Last Infusion: 09/18/24 11:19 Dose: Infused Documented By: Admin: 09/18/24 10:16 Dose: 999 mls/hr Documented By: CHRIS Piperacillin/Tazobactam/Dextrose (Zosyn) 3.375 gm in 50 mls @ 100 mls/hr IV X1 ONE Stop: 09/18/24 09:36 Last Infusion: 09/18/24 10:50 Dose: Infused Documented By: Admin: 09/18/24 10:15 Dose: 100 mls/hr Documented By: CHRIS Ibuprofen (Ibuprofen Tab 600 Mg Tablet) 600 mg PO X1 ONE Stop: 09/18/24 14:21 Last Admin: 09/18/24 15:56 Dose: 600 mg Documented By: CHRIS Lorazepam (Lorazepam 2 Mg/Ml Vial) 1 mg IVP X1 ONE Stop: 09/18/24 09:08 Last Admin: 09/18/24 10:16 Dose: 1 mg Documented By: CHRIS Lorazepam (Lorazepam 2 Mg/Ml Vial) 2 mg IVP X1 ONE Stop: 09/18/24 14:27 Last Admin: 09/18/24 15:56 Dose: 2 mg Documented By: CHRIS Morphine Sulfate (Morphine Sulf Inj 10 Mg/Ml Vial) 4 mg IVP X1 ONE Stop: 09/18/24 07:36 Last Admin: 09/18/24 08:28 Dose: 4 mg Documented By: CHRIS Morphine Sulfate (Morphine Sulf Inj 10 Mg/Ml Vial) 4 mg IVP X1 ONE Stop: 09/18/24 09:08 Last Admin: 09/18/24 10:15 Dose: 4 mg Documented By: CHRIS See above Consultations Consultation(s) initiated? (list below): Yes Consultation #1 (Physician, Specialty, Details): [facility] Neurosurgery, Dr. Peter, we reviewed patient presentation and CT findings, and he feels that there is no further intervention or further imaging needed at this point, this is something that would simply be discharged if it were not for his fever and sepsis. He does not recommend any further imaging or intervention at this point for the subdural. Time: 13:00 Consultation #2 (Physician, Specialty, Details): Radiation oncology, Dr. Rodrigues, reviewed the case at length, and will follow the patient if admitted here Time: 13:30 Consultation #3 (Physician, Specialty, Details): Hospitalist service, Dr. Lee (team C), we reviewed case at length, she is requesting repeat head CT right now, and review with her attending Dr. Zhu. 1412: Discussed test HPI, PMHx, lab, radiology results and/or management with Dr. Colin from [facility] neurosurgery, Dr. Peter does not feel due to the size of the subdural that it warrants a transfer and this is something they would normally discharge home. Dr. Colin does not recommend a repeat head CT. 1430: I spoke with Dr. Zhu?s team and are recommending admission to the ICU. 1500: I spoke with Dr. Ledesma and she feels that they are appropriate for the floors with Neuro. Is declining admission to the ICU. 1515: I discussed the case with Dr. Zhu again, ICU declining the case, and he is uncomfortable admitting patient, aware that surgery does not feel that this requires transfer. He is requesting a repeat head CT to test for expansion of the subdural hemorrhage, tele neuro consultation. We did note that the patient has a declining platelets to 88 today. Also concerning for TTP he?s not a candidate for LP. 1530: I reviewed the case with Dr. Oswald, nephrology about the potential for TTP or the need for plasma, he feels that he could progress and recommend transfer to a multidisciplinary center, which can monitor his platelet levels, if needed with hematology guidance. 1620: Transfer center now is looking towards [facility] for a transfer for a multidisciplinary team. 1730: Spoke with [facility] transfer nurse at length and will Diagnosis Differential diagnosis altered mental status: altered mental status, sepsis and other (UTI, pneumonia, opioid overdose ) Most likely diagnosis given after review of the tests above:: As noted below. Admission Indicated Admission indicated?: not indicated Explain why admission is indicated or not indicated:: Patient needs higher level of care and will be transferred. See consultations for details. Admission Request Was there a request for admission?: Yes Admission Attestation Admission request attestation: Discussed case with [] from Hospitalist service regarding admission. Discussed patients ED course, exam findings, labs, and radiology results. The Hospitalist [declines] to accept the patient for admission. Disposition Plan Disposition Plan: Transfer Critical Care Time Critical Care Time Critical Care Time: Yes Total Critical Care Time (min.): 90 Attestation: Excluding billable procedures for the right response, analysis, management, treatment, deliberation with specialist, and documentation event the very possible risk of neurologic and/or cardiovascular decompensation and or . Discharge Plan Prescriptions/Referrals Prescriptions/Med Rec: No Action capecitabine 500 mg Tablet 1,000 mg PO BID Rx Instructions: 2 TABS, 2X A DAY FOR 14 DAYS THEN OFF FOR 7 DAYS oxycodone-acetaminophen 10-325 mg tablet 1 - 2 tab PO Q6HR Patient Comments: take 1 TO 2 tablets by mouth every 6 hours if needed docusate sodium 250 mg Capsule 250 mg PO QDAY oxycodone [OxyContin] 15 mg Tablet,Oral Only,Ext.Rel.12 Hr 15 mg PO BID Referrals: Brisa Portillo MD [Primary Care Provider] - In 1 week Problem List Clinical Impression: Sepsis, Thrombocytopenia, Subdural hemorrhage, Encephalopathy, Pneumonia Patient/Caregiver Discharge Instructions Print Language: Maltese
[2024-09-18 08:00] LABS: Lactate (Lactic Acid) 3.3 mMol/L (0.4-2.0)
[2024-09-18 08:01] LABS: Basophils # (Auto) 0.1 Thou/mm3 (0.0-0.2); Basophils % (Auto) 1 % (0-2.5); Eosinophils % (Auto) 1 % (0-10); Hematocrit 31.3 % (41.0-53.0); Hemoglobin 9.8 g/dL (13.5-16.0); Immature Granulocytes % (Auto) 13 % (0-0); Immature Granulocytes Auto 0.77 Thou/mm3 (0.00-0.00); Lymphocytes # (Auto) 1.6 Thou/mm3 (1.0-4.8); Lymphocytes % (Auto) 26 % (10-50); Mean Corpuscular HGB Conc 31.3 g/dl (31.0-37.0); Mean Corpuscular Hemoglobin 27.3 pg (25.0-35.0); Mean Corpuscular Volume 87 fL (80-100); Monocytes # (Auto) 0.4 Thou/mm3 (0.0-0.8); Monocytes % (Auto) 6 % (0-12); Neutrophils # (Auto) 3.2 Thou/mm3 (1.8-7.7); Neutrophils % (Auto) 53 % (37-80); Nucleated Red Blood Cell # 0.14 Thou/mm3 (0.00-0.00); Nucleated Red Blood Cell % 2 /100 WBC (0); Platelet Count 88 Thou/mm3 (140-440); Red Blood Count 3.59 Miln/mm3 (4.50-5.90); White Blood Count 6.1 Thou/mm3 (3.8-10.6)
[2024-09-18] MEDS: ACETAMINOPHEN SUPP 650 MG SUPP PR (08:28)
[2024-09-18] MEDS: SODIUM CHLORIDE 0.9% 1000 ML 1,000 ML 999 ML IV ×2 (08:28→10:16)
[2024-09-18] MEDS: MORPHINE SULF INJ 10 MG/ML VIAL 4 MG IVP ×2 (08:28→10:15)
[2024-09-18 08:36] LABS: Alanine Aminotransferase 15 U/L (10-49); Albumin, Serum 3.7 gm/dL (3.4-4.8); Albumin/Globulin Ratio 0.9 (1.2-2.2); Alkaline Phosphatase 1445 U/L (46-116); Anion Gap 9 (7-16); Aspartate Amino Transferase 96 U/L (0-34); BUN/Creatinine Ratio 25 Ratio (12-20); Bilirubin,Total 0.5 mg/dL (0.3-1.2); Blood Urea Nitrogen 20 mg/dL (9-23); Calcium 9.2 mg/dL (8.3-10.6); Calcium (Corrected) 9.4 mg/dL (8.5-10.1); Carbon Dioxide 24.3 mMol/L (20.0-31.0); Chloride 100 mMol/L (98-107); Creatinine (Component) 0.8 mg/dL (0.6-1.3); Globulin 4.1 gm/dL (2.3-3.5); Glucose 120 mg/dL (74-106); Osmolality,Calculated 269 (275-295); Procalcitonin 0.48 ng/ml (0.0-0.49); Sodium 133 mMol/L (136-145); Total Protein 7.8 gm/dL (5.7-8.2); Troponin I < 0.002 ng/mL (0.0-0.045); eGFR > 60 See Note
--- NOTE | 2024-09-18 09:08 | XR_ITS ---
Examination: CT brain head without contrast. 2-D sagittal coronal reconstructions Date and time of exam:September 18, 2024 at 1019 hours INDICATIONS: Onset confusion lethargy altered mental status today, history August 24, 2024 left upper eyelid droop localized facial swelling, diagnosis malignant neoplasm prostate with known osseous metastatic disease CTDI: vol (mGy):50.6 DLP: (mGycm):1085 Technique: Multiple CT axial sections of the brain have been obtained, 5 mm slice thickness. Contrast has not been administered. 2-D sagittal, coronal reconstructions have been obtained Low dose protocols were performed. One or more of the following dose reduction techniques were used; automated exposure control, adjustment of the mA and/or KV according to patient size, use of iterative reconstruction technique. Findings: No significant ventricular enlargement. Subtle hyperdensity 2 mm in thickness peripheral to the left cerebral hemisphere, for instance axial image 22. No mass effect or midline shift Basal cisterns are not remarkable. Fourth ventricle is midline. Cranial vault intact. Impression: Subtle hyperdensity, 2 mm in thickness, peripheral to the left cerebral hemisphere consistent with small extra-axial subdural hematoma, advise close clinical observation and short-term follow-up CT brain scan
--- NOTE | 2024-09-18 10:02 | PC.NURSE ---
IN AND OUT DONE [facility]A SENT
[2024-09-18 10:03] LABS: Collection Type, Urine Catheter; Squamous Epithelial Cell,Urine 0 /hpf (0-5)
[2024-09-18 10:13] LABS: Bilirubin,Urine Negative (Negative); Blood,Urine Negative (Negative); Clarity,Urine Clear (Clear/Hazy); Color,Urine Lt-Yellow (Lt Yel-Yel); Glucose, Urine Negative (Negative); Hyaline Casts,Urine < 1 /hpf (0-1); Ketones,Urine 1+ (Negative); Leukocyte Esterase,Urine Negative (Negative); Nitrite,Urine Negative (Negative); Protein,Urine 1+ (Neg - Trace); RBC,Urine 1 /hpf (0-3); Specific Gravity,Urine 1.018 (1.001-1.035); WBC,Urine 1 /hpf (0-5)
[2024-09-18] MEDS: PIPER/TAZO 3.375 GM 3.375 GM/50 ML BAG IV ×2 (10:15→17:50)
[2024-09-18] MEDS: LORazepam 2 MG/ML VIAL 1 MG IVP (10:16)
[2024-09-18 10:57] LABS: Reflex Lactate? Y
--- NOTE | 2024-09-18 11:23 | PC.CM ---
Addendum entered by Tabatha Tejeda RN 09/18/24 17:03: I contacted Sherry at [facility] and I faxed over information. As per Dr. Rosales patient is needing hematology and oncology. Addendum entered by Tabatha Tejeda RN 09/18/24 14:16: I received a call from Marivel at [facility] and she stated their doctor spoke to Dr. Rosales and they declined patient stating he has a small bleed that does note need to be transferred out. Addendum entered by Tabatha Tejeda RN 09/18/24 13:57: 1330 I reached out to Marivel at [facility] and verified she received my referral. She states she did receive the referral and they are going to review the paperwork. Original Note: 1118 I received a referral to transfer patient neurosurgery. I will referral to [facility].
[2024-09-18 11:30] LABS: Lactic Acid, 3 HR 2.5 mMol/L (0.4-2.0)
--- NOTE | 2024-09-18 11:39 | PC.NURSE ---
1135 Patient was repositioned to right lateral per request of his son. Patient was provided with clean linen and 5 pillows at this time to support his back and head. His cardiac leads were reconnected again since the patient pulled them off. Patient tolerated well.
[2024-09-18 12:33] LABS: Path Review Blood Smear Sent to Pathologist
--- NOTE | 2024-09-18 14:37 | XR_ITS ---
Examination: CT brain head without contrast. 2-D sagittal coronal reconstructions Date and time of exam:September 18, 2024 1530 hours INDICATIONS: CT brain scan September 18, 2024 10:26 AM small left subdural hematoma CTDI: vol (mGy):49.8 DLP: (mGycm):1068 Technique: Multiple CT axial sections of the brain have been obtained, 5 mm slice thickness. Contrast has not been administered. 2-D sagittal, coronal reconstructions have been obtained Low dose protocols were performed. One or more of the following dose reduction techniques were used; automated exposure control, adjustment of the mA and/or KV according to patient size, use of iterative reconstruction technique. Findings: No significant ventricular enlargement. Stable minimal subdural hematoma peripheral to the left cerebral hemisphere, 2 mm in thickness No new area of hemorrhage density Cranial vault intact No mass effect or midline shift Basal cisterns are not remarkable. Fourth ventricle is midline. Cranial vault intact. Impression: Stable minimal subdural hematoma peripheral to the left cerebral hemisphere
--- NOTE | 2024-09-18 15:42 | PD.RESEVENT ---
Documentation for date of: 09/18/24 Event Note Event Note: Received request for admission from Dr. Rosales regarding Mr. Zheng with history of metastatic bone cancer of unknown primary origin extending to his left orbital wall. Patient was at his normal baseline, A&O x 3 per son, prior to [facility] followed by Dr. Rodrigues. In the ED, sepsis alert was called, and given IVF and IV Abx. Head CT evidently showed a subtle hyperdensity, 2 mm in thickness, peripheral to the left cerebral hemisphere consistent with small extra-axial subdural hematoma, which is a new finding from previous Head CT which was negative for acute hemorrhage. Per EMS, patient was given Narcan x 1 which didn't seem to help with his altered mentation. Patient seen at bedside is able to move all his extremities but unable to follow commands, currently a GCS of 12. Per ED physician and note, Dr. Peter, neurosurgeon at [facility] was contacted and recommended that no intervention would be needed, and patient would be discharged if not for his fever and current infection. D/t altered mental status in the setting of brain bleed, our initial suggestion was for patient to receive Q1HR neurochecks, which is currently only ICU level care at this hospital. ED contacted ICU attending and declined admission at this time. Our recommendation now is to repeat Head CT w/o contrast, LP, and get Tele neuro recommendations. Patient's care and plan discussed with my attending, Dr. Zhu. Jaqueline Lee, PGY-2
--- NOTE | 2024-09-18 15:51 | PC.NURSE ---
[id number] motorsports technician helped me reposition the patient and support with pillows. Patient tolerated well.
[2024-09-18] MEDS: LORazepam 2 MG/ML VIAL IVP (15:56)
[2024-09-18] MEDS: IBUPROFEN TAB 600 MG TABLET PO (15:56)
[2024-09-18 16:41] LABS: LDH (Lactate Dehydrogenase) 1205 U/L (120-246)
--- NOTE | 2024-09-18 17:53 | ESCONSULT_ITS ---
Tele Neuro Consultation Consultation Date 09/18/24 Most Recent Vital Signs Last Vital Signs Temp 99.8 F 09/18/24 17:15 Pulse 117 H 09/18/24 16:00 Resp 23 H 09/18/24 16:00 BP 134/80 H 09/18/24 16:00 Pulse Ox 94 L 09/18/24 16:00 O2 Del Method Room Air 09/18/24 16:00 Consultation Narrative [facility] TeleNeurology Consult Services Stat Consult Patient Name:???Blas Leonard Date of :???1960 Identification Number:??? 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 CT Head shows a small Left subdural hemorrhage. No head trauma. Query if this is related to his malignancy given recent radiation treatment yesterday. Plan to transfer for a higher level of care with neurosurgery and hematology/oncology consults. Recommendations: Our recommendations are outlined below. Medications: :Hold antiplatelet therapy/NSAIDS/Anticoagulation Nursing Recommendations: :Telemetry, IV Fluids?Avoid dextrose containing fluids, Maintain euglycemia Head of bed 30 degrees Neuro checks q1-2 hrs during ICU stay Once stable neuro checks q4 hrs keep BP less than 140/90's with goal of 130/80s Consultations: :Need Neurosurgery consultation Recommend Speech therapy if failed dysphagia screen Physical therapy/Occupational therapy DVT Prophylaxis: :SCDs Disposition: :Neurology will Follow Metrics: Dispatch Time: 09/18/2024 15:56:18 Callback Response Time: 09/18/2024 16:02:26 Primary Provider Notified of Diagnostic Impression and Management Plan on: 09/18/2024 17:42:23 Chief Complaint: AMS History of Present Illness:Patient is a 64 year old Male. Patient not acting like himself since yesterday after his radiation treatment yesterday. He has been incontinent of urine. He is now nonverbal. He has been given 3 mg of Ativan and 8 mg of morphine for agitation. ? Past Medical History: ?Diabetes Mellitus Other PMH:? 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 No Antiplatelet use Reviewed EMR for current medications Allergies:? Reviewed Social History: Drug Use: No Family History: There is no family history of premature cerebrovascular disease pertinent to this consultation ROS : 14 Points Review of Systems was performed and was negative except mentioned in HPI. Past Surgical History: There Is No Surgical History Contributory To Today?s Visit ? Examination: BP(134/80),?Pulse(117), 1A: Level of Consciousness - Movements to Pain?+ 2 1B: Ask Month and Age - Could Not Answer Either Question Correctly?+ 2 1C: Blink Eyes & Squeeze Hands - Performs 0 Tasks?+ 2 2: Test Horizontal Extraocular Movements - Normal?+ 0 3: Test Visual Covarrubias - No Visual Loss?+ 0 4: Test Facial Palsy (Use Grimace if Obtunded) - Normal symmetry?+ 0 5A: Test Left Arm Motor Drift - Some Effort Against Kidder?+ 2 5B: Test Right Arm Motor Drift - No Effort Against Kidder?+ 3 6A: Test Left Leg Motor Drift - No Effort Against Kidder?+ 3 6B: Test Right Leg Motor Drift - No Effort Against Kidder?+ 3 7: Test Limb Ataxia (FNF/Heel-Jerez) - Does Not Understand?+ 0 8: Test Sensation - Normal; No sensory loss?+ 0 9: Test Language/Aphasia - Mute/Global Aphasia: No Usable Speech/Auditory Comprehension?+ 3 10: Test Dysarthria - Mute/Anarthric?+ 2 11: Test Extinction/Inattention - No abnormality?+ 0 NIHSS Score:?22 Spoke with :?Dr. Rosales This consult was conducted in real time using interactive audio and video technology. Patient was informed of the technology being used for this visit and agreed to proceed. Patient located in hospital and provider located at home/office setting. Patient is being evaluated for possible acute neurologic impairment and high probability of imminent or life - threatening deterioration.I spent total of 30 minutes providing care to this patient, including time for face to face visit via telemedicine, review of medical records, imaging studies and discussion of findings with providers, the patient and / or family. Dr Se Christopher [facility] For Inpatient follow-up with [facility] physician please call [facility] at . As we are not an outpatient service for any post hospital discharge needs please contact the hospital for assistance. If you have any questions for the [facility] physicians or need to reconsult for clinical or diagnostic changes please contact us via [facility] at .
--- NOTE | 2024-09-18 18:52 | PC.NURSE ---
1648 Patient was changed into a dry brief and repositioned with pillows. Patient tolerated well.
[2024-09-18] MEDS: Vancomycin Inj 1,000 MG in SODIUM CHLORIDE 0.9% 250 ML 250 ML 150 MG IV (19:00)
--- NOTE | 2024-09-18 20:12 | PC.NURSE ---
REPORT CALLED TO ROSALBA STROUD AT [facility]. ALL QUESTIONS ANSWERED.
--- NOTE | 2024-09-18 20:18 | PC.NURSE ---
REPORT GIVEN TO [facility] ADVIS[facility]. ALL QUESTIONS ASKED AND ANSWERED. PATIENT TRANSFERRED TO [facility].
== END 2024-09-18 20:26 | disposition short-term general hospital (02) ==
PROVIDERS: Emergency Provider Emergency Medicine; PCP Obstetrics & Gynecology
DX: A41.9 Sepsis, unspecified organism (principal); I62.02 Nontraumatic subacute subdural hemorrhage; G93.40 Encephalopathy, unspecified; D69.6 Thrombocytopenia, unspecified; J18.9 Pneumonia, unspecified organism; R00.0 Tachycardia, unspecified; Z75.1 Person awaiting admission to adequate facility elsewhere
CPT/HCPCS: 36415; 70450; 71045; 80053; 81001; 83605; 83615; 84145; 84484; 85025; 87040; 87400; 87634; 87811; 93005; 96374; 96375; 99291; 99292; J2060; J2270; J2543; J3371; J7030; J7050; A9270; J3370